=== PATIENT | female | born 1995 | race American Indian/Alaskan Native ===

== ENCOUNTER 2022-01-10 13:13 | Emergency (ER) | payer MEDICAID ==
[2022-01-10 14:15] VITALS: BP 137/77
[2022-01-10] MEDS ORDERED: TETANUS,DIPH,PERTUSS(ACELL) VACCINE 0.5 ML SYRINGE IM ONE (14:24)
--- NOTE | 2022-01-10 15:04 | XRay Report ---
Left finger, 3 views HISTORY: Injury COMPARISON: None FINDINGS: There is soft tissue laceration of the volar aspect of the left small finger. No radiopaque foreign body. No acute fracture or malalignment. Signer Name: Kasi Garcia MD Signed: 01/10/2022 3:00 PM Workstation Name: [id number]
--- NOTE | 2022-01-10 15:48 | Emergency Department Report ---
ED Laceration HPI - HPI Chief Complaint: Wound/Laceration Stated Complaint: LEFT PINKY FINGER/WORK RELATED Time Seen by Provider: 01/10/22 14:20 Occurred When: Today Location: Upper Extremity Severity: mild Tetanus Status: Not up to Date Laceration Symptoms: Yes Pain, No Foreign Body Sensation, No Numbness, No Weakness Other History: This is a 26-year-old male nontoxic, well nourished in appearance, no acute signs of distress presents to the ED with c/o of left fifth finger laceration that occurred today prior to arrival. Patient stated he was at work and he can cause the laceration. Patient denies decreased sensation or range of motion. Patient stated bleeding is under control. Denies any numbness, tingling, fever, chills, nausea, vomiting, chest pain, shortness of breath, headache or stiff neck. Patient denies any allergies to significant past medical history. Patient is that he is not up-to-date with tetanus. ED Review of Systems ROS: Stated complaint: LEFT PINKY FINGER/WORK RELATED Other details as noted in HPI Comment: All other systems reviewed and negative Constitutional: denies: chills, fever Eyes: denies: eye pain, eye discharge, vision change ENT: denies: ear pain, throat pain Respiratory: denies: cough, shortness of breath, wheezing Cardiovascular: denies: chest pain, palpitations Endocrine: no symptoms reported Gastrointestinal: denies: abdominal pain, nausea, diarrhea Genitourinary: denies: urgency, dysuria, discharge Musculoskeletal: denies: back pain, joint swelling, arthralgia Skin: denies: rash, lesions Neurological: denies: headache, weakness, paresthesias Psychiatric: denies: anxiety, depression Hematological/Lymphatic: denies: easy bleeding, easy bruising ED Past Medical Hx - Past Medical History Previous Medical History?: No - Surgical History Past Surgical History?: No - Social History Smoking Status: Never Smoker Substance Use Type: None - Medications Home Medications: Home Medications Medication Instructions Recorded Confirmed Last Taken Type Naproxen 500 mg PO Q12H PRN #12 tab 01/10/22 Unknown Rx Laceration Physical Exam - Exam General: Vital signs noted. No distress. Alert and acting appropriately. Wound Length (cm): 1 (Superficial left fifth finger) Laceration Location: Upper Extremity Laceration Exam: Yes Normal Distal CMS, No Foreign Body, No Exposed Tendon, Vessel, or Nerve, No Tendon Injury ED Course Vital Signs 01/10/22 14:11 Temperature 98.2 F Pulse Rate 66 Respiratory 16 Rate Blood Pressure 137/77 O2 Sat by Pulse 100 Oximetry - Reevaluation(s) Reevaluation #1: 01/10/22 15:45 Patient is speaking in full sentences with no signs of distress noted. - Laceration /Wound Repair Left Finger Wound Location: upper extremity (Left distal fifth finger) Wound Length (cm): 1 Wound's Depth, Shape: superficial Wound Explored: clean Irrigated w/ Saline (ccs): 40 Betadine Prep?: Yes Wound Repaired With: Dermabond Layer Closure?: No Sterile Dressing Applied?: Yes Progress: Patient first soaked finger with Betadine mixed with warm water. Under sterile field, I used Betadine to clean the area. I then used 40 mL of normal saline to flush the area. I then used Dermabond to approximate the laceration. I then applied a sterile 4 x 4 with tape. Minimal bleeding noted but is under control. Patient tolerated procedure well with no signs of distress. ED Medical Decision Making - Radiology Data [facility] [address] [place] [address] XRay Report Signed Patient: SEN CORCORAN MR#: [id number] [birth year] : 1995 Acct:[id number] Age/Sex: 26 / F ADM Date: 01/10/22 Loc: ED Attending Dr: Ordering Physician: RERE ABURTO NP Date of Service: 01/10/22 Procedure(s): XR finger(s) 2+V LT Accession Number(s): [id number] cc: RERE ABURTO NP Fluoro Time In Minutes: Left finger, 3 views HISTORY: Injury COMPARISON: None FINDINGS: There is soft tissue laceration of the volar aspect of the left small finger. No radiopaque foreign body. No acute fracture or malalignment. Signer Name: Arvin Garcia MD Signed: 01/10/2022 3:00 PM Workstation Name: [id number] Transcribed By: TOMAS Dictated By: ARVIN GARCIA MD Electronically Authenticated By: ARVIN GARCIA MD Signed Date/Time: 01/10/22 1500 DD/ 1454 TD/TT: - Medical Decision Making This is a 26-year-old female that presents with laceration. Patient is stable and was examined by me. The laceration dermabond has been performed and has been performed and patient tolerated well. A sterile dressing has been applied. Patient was educated on proper wound care. Patient educated on Dermabond care. Instructed patient no physical activity that extremity until demand peels by itself. patient was instructed to refer to Follow-up with a primary care doctor in 3-5 days or if symptoms worsen and continue return to emergency room as soon as possible. At time of discharge, the patient does not seem toxic or ill in appearance. No acute signs of distress noted. Patient agrees to discharge treatment plan of care. No further questions noted by the patient. Critical care attestation.: If time is entered above; I have spent that time in minutes in the direct care of this critically ill patient, excluding procedure time. ED Disposition Clinical Impression: Laceration of left little finger Qualifiers: Encounter type: initial encounter Damage to nail status: without damage Foreign body presence: without foreign body Qualified Code(s): S61.217A - Laceration without foreign body of left little finger without damage to nail, initial encounter Disposition: 01 HOME / SELF CARE / HOMELESS Is pt being admited?: No Does the pt Need Aspirin: No Condition: Stable Instructions: Laceration Care, Adult Additional Instructions: Follow-up with a primary care doctor in 3-5 days or if symptoms worsen and continue return to emergency room as soon as possible. No physical activity that extremity until demand peels by itself Prescriptions: Naproxen 500 mg PO Q12H PRN #12 tab PRN Reason: Pain , Severe (7-10) Referrals: SUSANNAH HERNANDEZ MD [Referring] - 3-5 Days PAT CALLAHAN MD [Primary Care Provider] - 3-5 Days Forms: Work/School Release Form(ED) Time of Disposition: 15:49
== END 2022-01-10 16:00 | disposition home or self-care (01) ==
LOC: ED 13:13
DX: S61.213A Laceration without foreign body of left middle finger without damage to nail, initial encounter (principal); X58.XXXA Exposure to other specified factors, initial encounter; Y93.89 Activity, other specified; Y92.89 Other specified places as the place of occurrence of the external cause; Y99.8 Other external cause status
CPT/HCPCS: 90471; 90715; 99283